=== PATIENT | female | born 1985 | race Caucasian/White ===

== ENCOUNTER 2020-11-24 18:40 | Emergency (ER) | payer OTHER ==
[~2020-11-24 18:40] MED LIST: AMOXICILLIN500 MG PO; MOTRIN600 MG PO; OXYCONTIN 10MG10 MG PO
[2020-11-24 19:19] LABS: BASOPHIL 0.4 % (0-2); EOSINOPHIL 1.2 % (0-5); HCT 38.3 % (37.0-47.0); HGB 12.6 g/dl (12.5-16.0); LYMPHOCYTE 29.6 % (15-48); MCH 30.3 pg (25.0-31.0); MCHC 32.9 g/dL (32.0-36.0); MCV 92.1 fL (78.0-100.0); MONOCYTE 6.1 % (0-12); NEUTROPHIL 62.4 % (41-80); NRBC 0; PLT 293 K/uL (150-400); RBC 4.16 M/uL (4.20-5.40); RDW 11.9 % (11.5-14.0)
[2020-11-24 19:39] LABS: ALBUMIN 3.5 g/dL (3.4-5.0); BILIRUBIN - TOTAL 0.4 mg/dL (0.2-1.0); BUN/CREAT RATIO (CALC) 10.3 RATIO; CREATININE 0.68 mg/dL (0.51-0.95); GLOBULIN (CALCULATION) 3.6 g/dL; POTASSIUM 3.7 mmol/L (3.5-5.1); TOTAL PROTEIN 7.1 g/dL (6.4-8.2)
[2020-11-24 20:37] LABS: BILIRUBIN NEGATIVE (NEGATIVE); BLOOD NEGATIVE Ery/uL (NEGATIVE); CLARITY CLEAR (CLEAR); COLOR YELLOW (YELLOW); GLUCOSE (U) NORMAL (NORMAL); LEUKOCYTES NEGATIVE Leu/uL (NEGATIVE); NITRITE NEGATIVE (NEGATIVE); PROTEIN NEGATIVE (NEGATIVE); SPECIFIC GRAVITY <=1.005 (1.001-1.030); UROBILINOGEN 0.2 mg/dL (0.2-1.0); pH 6.5 (5.0-9.0)
[2020-11-24 20:38] LABS: AMPHETAMINES NEGATIVE (NEGATIVE); BARBITURATES NEGATIVE (NEGATIVE); ECSTASY (MDMA) NEGATIVE (NEGATIVE); MARIJUANA (THC) NEGATIVE (NEGATIVE); METHADONE NEGATIVE (NEGATIVE); OPIATES NEGATIVE (NEGATIVE); OXYCODONE NEGATIVE (NEGATIVE)
== END 2020-11-24 22:21 | disposition home or self-care (01) ==
LOC: FER 18:40
PROVIDERS: Emergency Medicine; Nurse Practitioner Family
DX: F41.1 Generalized anxiety disorder (principal); F17.210 Nicotine dependence, cigarettes, uncomplicated; H53.8 Other visual disturbances
CPT/HCPCS: 36415; 70450; 80053; 80305; 81003; 85025; 93005; J7030